=== PATIENT | female | born 1980 | race Caucasian/White ===

== ENCOUNTER 2017-07-12 04:43 | Emergency (ER) | payer OTHER ==
[2017-07-12 05:01] LABS: URINE HCG POC HCG NEGATIVE (Negative)
[2017-07-12] MEDS: ONDANSETRON ODT 4 MG TAB.RAPDIS. PO (05:45)
[2017-07-12] MEDS: KETOROLAC 30 MG/ML INJ. IM (05:46)
[2017-07-12] MEDS: DIPHTH,PERTUSS(ACELL),TET TOX 0.5 ML DISP.SYRIN. VAX IM (05:46)
== END 2017-07-12 06:40 | disposition home or self-care (01) ==
LOC: ER 04:43
DX: S02.2XXA Fracture of nasal bones, initial encounter for closed fracture (principal); F42.4 Excoriation (skin-picking) disorder; S00.93XA Contusion of unspecified part of head, initial encounter; Z88.5 Allergy status to narcotic agent; Z91.013 Allergy to seafood; Z88.6 Allergy status to analgesic agent; Y08.89XA Assault by other specified means, initial encounter; Y93.89 Activity, other specified; Y99.8 Other external cause status; Y92.89 Other specified places as the place of occurrence of the external cause
CPT/HCPCS: 70450; 70486; 81025; 90471; 90715; 96372; 99284-25; J1885; Q0162